=== PATIENT | female | born 1955 | race Caucasian/White ===

== ENCOUNTER → 2016-04-29 | Outpatient (CLI) | payer OTHER ==
[~2016-04-29] MED LIST: ALBUAER2 INH; ATV/1 PO; BUPR-83 PO; CITA40TA12 PO; CYAN10005 PO; FESO8TAB PO; FLUT0.0529; FURO-85 PO; HYDR100C PO; LITH150C PO; LMC/150 PO; MELOPOW PO; METFPOW PO; MONT1TAB3 PO; ONDA8TAB7 PO; PRAZ1CAP28 PO; PRIMPOW10 PO; PRT/20 PO; SIMV1POW PO; SPIRPOW PO; SYMIN160 INH; TRAZ150T64 PO
[2016-04-29 09:58] LABS: ESTIMATED AVERAGE GLUCOSE 151 mg/dl; HA1C FLAG Normal (Normal)
== END | disposition home or self-care (01) ==
LOC: C.LAB 16:39
PROVIDERS: ATTEND Internal Medicine
DX: E11.9 Type 2 diabetes mellitus without complications (principal); C19 Malignant neoplasm of rectosigmoid junction

== ENCOUNTER → 2016-11-04 | Outpatient (CLI) | payer OTHER ==
[2016-11-04 09:56] LABS: CHOLESTEROL/HDL RATIO 3.2; THYROID STIMULATING HORMONE 1.94 uIu/ml (0.300-4.500)
[2016-11-04 09:59] LABS: RATIO 24.6 mcg/mg (0-30.0)
[2016-11-04 13:33] LABS: ESTIMATED AVERAGE GLUCOSE 183 mg/dl; HA1C FLAG Normal (Normal)
== END | disposition home or self-care (01) ==
LOC: C.LAB 11:28
PROVIDERS: ATTEND Family Medicine
DX: E78.2 Mixed hyperlipidemia (principal); E11.9 Type 2 diabetes mellitus without complications; E34.9 Endocrine disorder, unspecified; C19 Malignant neoplasm of rectosigmoid junction

== ENCOUNTER → 2017-04-21 | Outpatient (CLI) | payer OTHER ==
[2017-04-21 11:20] LABS: HEMOGLOBIN A1C 9.4 % (4.5-5.6)
== END | disposition home or self-care (01) ==
LOC: C.LAB 16:49
PROVIDERS: ATTEND Family Medicine
DX: E78.2 Mixed hyperlipidemia (principal); E11.65 Type 2 diabetes mellitus with hyperglycemia; C19 Malignant neoplasm of rectosigmoid junction

== ENCOUNTER → 2017-06-28 | Outpatient (CLI) | payer OTHER ==
--- NOTE | 2017-06-29 07:39 | MAMMOGRAPHY REPORT ---
BILATERAL DIGITAL SCREENING MAMMOGRAM TOMOSYNTHESIS WITH CAD: 06/28/2017 CLINICAL HISTORY: Routine screening. Patient has no complaints. TECHNIQUE: Breast tomosynthesis in addition to standard 2D mammography was performed. Current study was also evaluated with a Computer Aided Detection (CAD) system. COMPARISON: Comparison is made to exams dated: 02/05/2014 mammogram - [facility], mammogram, 07/21/2011 mammogram, 01/08/2011 mammogram, 06/16/2010 mammogram - [facility], and 10/12/2008 mammogram. BREAST COMPOSITION: There are scattered areas of fibroglandular density in both breasts. FINDINGS: The hub of a Mediport catheter projects over the right pectoralis muscle in the superior po sterior breast on the MLO view. There are minimal vascular calcifications and a few scattered benign -appearing punctate microcalcifications in the breasts. No suspicious mass, asymmetry, architectural distortion or cluster of suspicious microcalcifications is seen. IMPRESSION: ACR BI-RADS CATEGORY 1: NEGATIVE There is no mammographic evidence of malignancy. More recent prior outside mammograms from [facility] are currently being requested and if obtained they will be reviewed to assess for any more subtle changes and an addendum will be made to this report. Otherwise, a one year screening mammogram is recommended. The patient will receive written notification of the results. Approximately 10% of breast cancers are not detected with mammography. A negative mammographic report should not delay biopsy if a clinically suggestive mass is present. Araceli Pate M.D. ay/:06/28/2017 15:51:06 Roaster Operator: Bhavya RODRIGUEZ)(M), [facility] letter sent: Normal 1/2 BI-RADS Code: ACR BI-RADS Category 1: Negative
== END | disposition home or self-care (01) ==
LOC: C.MAMM 15:24
PROVIDERS: ATTEND Nurse Practitioner Family
DX: Z12.31 Encounter for screening mammogram for malignant neoplasm of breast (principal)